=== PATIENT | female | born 1955 | race Caucasian/White ===

== ENCOUNTER 2020-11-26 18:33 | Outpatient (CLI) | payer OTHER ==
--- NOTE | 2020-11-26 21:37 | XRAY Report ---
PROCEDURE: Foot 3 View LT INDICATIONS: FX OF L FOOT TECHNIQUE: 3 views of the foot were acquired. COMPARISON: None. FINDINGS: Bones: No fractures or dislocations. No suspicious bony lesions. There is a moderate degree of deg enerative change at the first MTP joint where joint space narrowing is present. Soft tissues: No tibiotalar joint effusion. Achilles tendon appears normal. 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 The area of reported c linical concern is at the lateral fifth metatarsal area, and no fracture or traumatic subluxation is present. Reviewed by: Manuel London MD on 11/26/2020 9:36 PM PDT Approved by: Manuel London MD on 11/26/2020 9:36 PM PDT Station ID: [id number]
== END 2020-11-26 23:59 | disposition home or self-care (01) ==
LOC: DI.N 18:33
PROVIDERS: ATTEND Physician Assistant Medical
DX: M19.072 Primary osteoarthritis, left ankle and foot (principal)

== ENCOUNTER 2020-12-16 07:00 | Outpatient (CLI) | payer OTHER ==
--- NOTE | 2020-12-16 17:20 | XRAY Report ---
PROCEDURE: Foot 3 View LT INDICATIONS: CONTUSION OF L FOOT TECHNIQUE: 3 views of the foot were acquired. COMPARISON: 11/26/2020. Mild to moderate first CMC joint osteoarthritis. FINDINGS: Bones: No fractures or dislocations. No suspicious bony lesions. Large plantar and dorsal calcaneal bone spurs. Soft tissues: No tibiotalar joint effusion. Achilles tendon appears normal. IMPRESSION: No fracture. No acute osseous lesion. If there persistent symptoms or continued clinical concern for pathology, then advanced imaging (CT, MR, bone scan) should be considered for further evaluation. Reviewed by: Kirsten Pittman MD, PhD on 12/16/2020 5:19 PM PDT Approved by: Kirsten Pittman MD, PhD on 12/16/2020 5:19 PM PDT Station ID: [id number]
== END 2020-12-16 23:59 | disposition home or self-care (01) ==
LOC: DI.N 07:00
PROVIDERS: ATTEND Physician Assistant Medical
DX: S90.32XD Contusion of left foot, subsequent encounter (principal)

== ENCOUNTER 2024-01-01 12:37 | Emergency (ER) | payer MEDICARE, BC ==
[2024-01-01] MEDS: lidocaine 1% 20 ML MDV SUBQ ONE (14:32)
--- NOTE | 2024-01-01 15:22 | ED Physician Documentation ---
PD HPI LOWER EXT INJURY - Stated complaint Stated Complaint: RT LEG INJ - Chief complaint Chief Complaint: Trauma Ext - History obtained from History obtained from: Patient - Additional information Additional information: Patient comes to the emergency department chief complaint of injury to right [place] after stepping in a hole while hiking. She states that it looked as though there had been a post in the hole which was now taken out. She was walking along and did not see the whole and accidentally stepped on it. She states that she did not feel like she injured her foot or her ankle, but that she felt as though something caught on her [place] and when she took her foot out of the hole, she noticed a gaping wound. The patient was able to finish her hike and get back to her car, but states that has been hurting. She came straight here upon arriving back to the car. No other injuries or complaints. Patient believes she is up-to-date on tetanus and has had it within the last 10 years. No other complaints at this time. PD PAST MEDICAL HISTORY - Past Medical History Past Medical History: No - Past Surgical History Past Surgical History: Yes /[employer]: Hysterectomy - Present Medications Home Medications: Ambulatory Orders Medication Instructions Recorded Confirmed Atorvastatin [Lipitor] 10 mg PO DAILY 01/01/24 01/01/24 - Allergies Allergies/Adverse Reactions: Allergies Allergy/AdvReac Type Severity Reaction Status Date / Time cephalexin [From Keflex] Allergy Hives Verified 01/01/24 12:52 - Social History Does the pt smoke?: Yes Smoking Status: Never smoker Does the pt drink ETOH?: Yes Does the pt have substance abuse?: No PD ED PE NORMAL - Vitals Vital signs reviewed: Yes - General General: Alert and oriented X 3, No acute distress, Well developed/nourished - HEENT HEENT: Atraumatic, EOMI, Moist mucous membranes - Neck Neck: Supple, no meningeal sign - Cardiac Cardiac: Strong equal pulses - Respiratory Respiratory: No respiratory distress - Derm Derm: Normal color, Warm and dry, No rash, Other (3 cm total length V shaped Laceration in mid right anterior tibial area. Bleeding controlled. Some maceration of tissue. Small adjacent hematoma at about the 11 o'clock position.) - Extremities Extremities: No deformity - Neuro Neuro: Alert and oriented X 3 - Psych Psych: Normal mood, Normal affect Results - Vitals Vitals: Vital Signs - 24 hr 01/01/24 12:45 Temperature 35.2 C L Heart Rate 93 Respiratory 18 Rate Blood Pressure 150/106 H O2 Saturation 98 Oxygen O2 Source Room air Procedures - Laceration (location) Right anterior tibial area Length in cm: 3 Wound type: Flap, Into subcut fat, Clean Neurovascular status: Sensory intact, Motor intact, Vascular intact Anesthesia: Lidocaine 1% with epi Wound preparation: Hibiclens, Irrigated copiously NS, Wound explored, To the base Skin layer closure: Nylon, Interrupted, Size #-0 - enter number (4.0), Sutures - enter # (5) Other: Patient tolerated well, No complications, Neurovascular intact, Dressing applied, Tetanus UTD PD Medical Decision Making - ED course Complexity details: considered differential, d/w patient ED course: Wound repaired as above. The patient has been advised regarding wound care and timeline for suture removal. Because of the depth of the wound as well as the thin edge of the flap, I have recommended 10 days instead of the usual 7. A supportive pressure dressing has been placed over the wound. We discussed the usual indications for return sooner than the time of suture removal. Departure - Departure Disposition: 01 Home, Self Care Clinical Impression: Laceration of lower extremity Qualifiers: Encounter type: initial encounter Laterality: right Qualified Code(s): S81.811A - Laceration without foreign body, right lower leg, initial encounter Condition: Stable Instructions: ED Laceration All Comments: Your wound has been repaired today with 5 synthetic sutures. You should generally keep the wound clean and dry, though you may allow water and soap to run over the wound while you are in the shower. Please do not rub, scrub, or immerse the wound as long as the sutures are in. This is to help prevent infection from setting in. You will most likely have some swelling and bruising around the wound and gravity may pull the bruising down your leg over the coming days. This is normal and does not indicate extension of the injury. If you notice deep redness spreading progressively away from the wound, you should have it rechecked to assess for infection. Otherwise, you should have the sutures removed in 10 days. You may have this done by your primary doctor, at the walk- in clinic or here in the ER. Until then, you may apply an antibiotic ointment to the area to prevent infection. Once the wound scabs over, you may leave it open to air to help it dry out.
[2024-01-01] MEDS: BACITRACIN ZINC OINT 1 PACKET TOP STA (15:25)
[2024-01-01 15:51] VITALS: BP 139/87; O2SAT 99
== END 2024-01-01 15:40 | disposition home or self-care (01) ==
LOC: ED 12:37
DX: S81.811A Laceration without foreign body, right lower leg, initial encounter (principal); W18.42XA Slipping, tripping and stumbling without falling due to stepping into hole or opening, initial encounter
CPT/HCPCS: 12002; 99282; A9270